=== PATIENT | female | born 1985 | race Caucasian/White ===

== ENCOUNTER 2016-09-17 18:45 | Emergency (ER) | payer MEDICAID ==
[~2016-09-17] VITALS: Ht 162.6 cm; Wt 60.7 kg
[~2016-09-17 18:45] MED LIST: HYDR-3498 PO; IBUP-1542 PO; PREN-39 PO; PRO20 PO
[2016-09-17 18:51] VITALS: Ht 162.6 cm; Wt 60.7 kg
--- NOTE | 2016-09-17 20:27 | ERD ---
ER Documentation Chief Complaint Date/Time DATE: 09/17/16 TIME: 20:26 Chief Complaint lower abd pain radaiting to back x 3 days HPI This a 31-year-old female who presents to the emergency department today complaining of lower abdominal pain and back pain. Patient states that she noticed some blood in her urine when she wiped. States she has taken Tylenol for the pain. She recently had a Pap smear. Denies any nausea vomiting, fevers or chills per ROS All systems reviewed and are negative except as per history of present illness. Medications Home Meds Active Scripts Acetaminophen* (Tylophen*) 500 Mg Capsule, 1 CAP PO Q6H Y for PAIN AND OR ELEVATED TEMP, #30 CAP Prov:BELKIS CRAWLEY-Mónica 09/17/16 Naproxen* (Naprosyn*) 500 Mg Tablet, 500 MG PO BID Y for PAIN AND/OR INFLAMMATION, #30 TAB Prov:BELKIS CRAWLEYC 09/17/16 Tramadol HCl (Tramadol HCl) 50 Mg Tablet, 50 MG PO Q4 Y for PAIN, #20 TAB Prov:BELKIS CRAWLEY-C 09/17/16 Ibuprofen* (Ibuprofen*) 600 Mg Tablet, 600 MG PO Q6 for 7 Days, TAB Prov:AMALIA LORENZO 09/19/15 Hydrocodone Bit-Acetaminophen* ([place]*) 5-325 Mg Tab, 1 TAB PO Q6 Y for PAIN, # 20 TAB Prov:AMALIA LORENZO 09/19/15 Reported Medications Nifedipine* (Procardia*) 20 Mg Cap, 20 MG PO Q6 12/03/12 Vits W-Ca,Fe,Fa(<1MG) ( Vitamins) 1 Tab Tablet, 1 TAB PO 12/03/12 Allergies Allergies: Coded Allergies: No Known Drug Allergy (Verified Allergy, Unknown, 09/19/15) PMhx/Soc History of Surgery: Yes (HYSTERRECTOMY) Hx Miscellaneous Medical Probl: Yes (BACK PAINS) Hx Alcohol Use: No Hx Substance Use: No Hx Tobacco Use: No Physical Exam Vitals Vital Signs Date Time Temp Pulse Resp B/P Pulse Ox O2 Delivery O2 Flow Rate FiO2 09/17/16 18:51 97.3 104 20 136/77 98 Physical Exam Const: No acute distress Head: Atraumatic Eyes: Normal Conjunctiva ENT: Normal External Ears, Nose and Mouth. Neck: Full range of motion..~ No meningismus. Resp: Clear to auscultation bilaterally Cardio: Regular rate and rhythm, no murmurs Abd: Soft, suprapubic tenderness non distended. Normal bowel sounds. No right lower quadrant pain. No tenderness at McBurney's. No left lower quadrant pain. Skin: No petechiae or rashes Back: No midline tenderness. Bilateral paraspinal tenderness. No CVA tenderness. Ext: No cyanosis, or edema Neur: Awake and alert Psych: Normal Mood and Affect Result Diagram: 09/17/162139 Results 24 hrs Laboratory Tests Test 09/17/16 20:35 09/17/16 21:40 Urine Bacteria RARE Urine Bilirubin NEGATIVE Urine Clarity CLEAR Urine Color LT. YELLOW Urine Glucose NEGATIVE% Urine Hemoglobin TRACE Urine Ketones NEGATIVE Urine Leukocyte Esterase NEGATIVE Urine Microscopic RBC 0-2/HPF Urine Microscopic WBC 0-2/HPF Urine Nitrite NEGATIVE Urine Specific [place] 1.015 Urine Squamous Epithelial Cells FEW Urine Total Protein NEGATIVE Urine Urobilinogen 0.2 E.U./dL Urine pH 7.5 Basophils # 0.010^3/ul Basophils % 0.3% Eosinophils # 0.110^3/ul Eosinophils % 1.2% Hematocrit 39.0% Hemoglobin 13.1g/dl Lymphocytes # 3.710^3/ul Lymphocytes % 49.3% Mean Corpuscular Hemoglobin 29.1pg Mean Corpuscular Hemoglobin Concent 33.6g/dl Mean Corpuscular Volume 86.7fl Mean Platelet Volume 9.4fl Monocytes # 0.510^3/ul Monocytes % 6.8% Neutrophils # 3.210^3/ul Neutrophils % 42.3% Nucleated Red Blood Cells # 0.010^3/ul Nucleated Red Blood Cells % 0.0/100WBC Platelet Count 18211^3/UL Red Blood Count 4.5010^6/ul Red Cell Distribution Width 13.2% White Blood Count 7.510^3/ul Current Medications Medications (Trade) Dose Ordered Sig/Wagner Route PRN Reason Start Time Stop Time Status Last Admin Dose Admin Acetaminophen/ Hydrocodone Bitart ([place] (5/325)) 1 tab ONCE ONCE PO 09/17/16 20:30 09/17/16 20:31 DC 09/17/16 20:45 Acetaminophen/ Hydrocodone Bitart ([place] (8/618)) 1 tab ONCE ONCE PO 09/17/16 20:30 09/17/16 20:31 DC DIAGNOSTIC IMAGING REPORT Patient: GIBRAN CEBALLOS : 1985 Age: 31 Sex: F MR #: [id number] DOS: 09/17/16 0000 Ordering MD: BELKIS CRAWLEY PA-C Location: [facility] Room/Bed: PROCEDURE: US Pelvis. CLINICAL INDICATION: Pelvic pain TECHNIQUE: Multiple sonographic images of the pelvis were obtained utilizing a transabdominal technique. The images were reviewed on a PACS workstation. COMPARISON: None available FINDINGS: Uterus: Normal in size, contour and echogenicity with no evidence for myometrial masses. Size is estimated at 7.2 x 5.1 x 3.7 cm. Cervix: No abnormalities of significance are seen. Endometrium: Normal in thickness for the patient's age; 8.1 mm. Right ovary / adnexa: Normal in size estimated at 3 x 2.5 x 2.1 cm. No evidence for masses, normal blood flow on Doppler interrogation. Incidental follicles of the right ovary are present. Left ovary/adnexa: The ovary is not visualized. There is no evidence of adnexal mass. Cul-de-sac: No evidence of free fluid. RPTAT:HJJR IMPRESSION: Nonvisualization of the left ovary, otherwise unremarkable transabdominal pelvic ultrasound. Physician Geraldo Date Time Electronically viewed and signed by Physician Geraldo on 09/17/2016 22:06 JR/ CC: BELKIS CRAWLEY PA-C Procedures/MDM This is a 31-year-old female who presents the emergency department today complaining of lower abdominal pain and back pain for the past 3 days. Patient did indicate that she had some blood in her urine and she has some suprapubic tenderness on physical exam and therefore did obtain a UA and urine test as well as a CBC and pelvic ultrasound UA is negative for infection Urine test is negative CBC shows no elevated white blood cell count. She is not anemic. Platelets are within normal limits. Pelvic ultrasound shows nonvisualization of the left ovary otherwise unremarkable. There is no evidence of adnexal mass. No evidence of free fluid. The right ovary shows normal blood flow. Patient is walking around the emergency room. Her pain was primarily in the suprapubic region and was not localized to either side of her pelvis. Of low suspicion for ectopic , tubo-ovarian abscess or ovarian torsion. She is afebrile and otherwise well- appearing. Patient had no right lower quadrant tenderness no tenderness at McBurney's pillar do not feel that she requires a CT scan. Low suspicion for acute surgical abdomen. Patient has pelvic pain of uncertain etiology. Patient was given [place] here in the emergency department. And pain improved significantly. Patient was given a prescription for tramadol, Naprosyn and Tylenol. At this time the patient is stable for discharge and outpatient management. Patient should follow up with their PCP in the next 1-2 days. They may return to the emergency department sooner for any persistent or worsening of symptoms. Patient understood and agreed with the plan. BELKIS CRAWLEY PA-C Sep 17, 2016 20:27
[2016-09-17] MEDS ORDERED: HYDROCODONE/APAP (5/325) TAB PO ONE ×2 (20:30)
[2016-09-17 21:17] LABS: ADD UMIC YES; URINE BILIRUBIN (Dip) NEGATIVE (NEGATIVE); URINE BLOOD (Dip) TRACE (NEGATIVE); URINE COLOR LT. YELLOW (YELLOW); URINE GLUCOSE (Dip) NEGATIVE (NEGATIVE); URINE KETONES (Dip) NEGATIVE (NEGATIVE); URINE LEUKOCYTE ESTERASE (Dip) NEGATIVE (NEGATIVE); URINE NITRITE (Dip) NEGATIVE (NEGATIVE); URINE TOTAL PROTEIN (Dip) NEGATIVE (NEGATIVE); URINE UROBILINOGEN (Dip) 0.2 E.U./dL (0.1-1.0)
[2016-09-17 21:28] LABS: URINE RBCS 0-2 /HPF (0)
[2016-09-17 21:29] LABS: BACTERIA,URINE RARE; SQUAMOUS EPITHELIAL CELL,UR FEW
[2016-09-17 21:52] LABS: ADD SCAN DIFF NO
[2016-09-17 21:55] LABS: BASOPHILS % 0.3 % (0.0-2.0); EOSINOPHILS # 0.1 10^3/ul (0.0-0.5); EOSINOPHILS % 1.2 % (0.0-7.0); HEMOGLOBIN 13.1 g/dl (12.0-16.0); LYMPHOCYTES # 3.7 10^3/ul (0.8-2.9); LYMPHOCYTES % 49.3 % (15.0-51.0); MEAN CORPUSCULAR HEMOGLOBIN 29.1 pg (29.0-33.0); MEAN CORPUSCULAR HGB CONC 33.6 g/dl (32.0-37.0); MEAN CORPUSCULAR VOLUME 86.7 fl (82.0-101.0); MEAN PLATELET VOLUME 9.4 fl (7.4-10.4); MONOCYTE # 0.5 10^3/ul (0.3-0.9); MONOCYTES % 6.8 % (0.0-11.0); NEUTROPHIL # 3.2 10^3/ul (1.6-7.5); NEUTROPHILS % 42.3 % (39.0-77.0); PLATELET COUNT 343 10^3/UL (140-415); RED CELL DISTRIBUTION WIDTH 13.2 % (11.5-14.5); WHITE BLOOD COUNT 7.5 10^3/ul (4.8-10.8)
--- NOTE | 2016-09-17 22:06 | RADRPT ---
PROCEDURE: US Pelvis. CLINICAL INDICATION: Pelvic pain TECHNIQUE: Multiple sonographic images of the pelvis were obtained utilizing a transabdominal tech nique. The images were reviewed on a PACS workstation. COMPARISON: None available FINDINGS: Uterus: Normal in size, contour and echogenicity with no evidence for myometrial masses. Size is est imated at 7.2 x 5.1 x 3.7 cm. Cervix: No abnormalities of significance are seen. Endometrium: Normal in thickness for the patient's age; 8.1 mm. Right ovary / adnexa: Normal in size estimated at 3 x 2.5 x 2.1 cm. No evidence for masses, normal blood flow on Doppler interrogation. Incidental follicles of the right ovary are present. Left ovary/adnexa: The ovary is not visualized. There is no evidence of adnexal mass. Cul-de-sac: No evidence of free fluid. RPTAT:HJJR IMPRESSION: Nonvisualization of the left ovary, otherwise unremarkable transabdominal pelvic ultrasound. Physician Geraldo Date Time Electronically viewed and signed by Physician Geraldo on 09/17/2016 22:06 JR/
[2016-09-17] MEDS ORDERED: ACET500C5 PO (22:39)
[2016-09-17] MEDS ORDERED: TRAM50TA2 PO (22:39)
[2016-09-17] MEDS ORDERED: NAPR-260 PO (22:39)
[2016-09-17 22:50] VITALS: BP 131/79; PULSE 77; RESP 20; TEMP 98.4
== END 2016-09-17 22:50 | disposition home or self-care (01) ==
LOC: FTE 18:45
DX: R10.30 Lower abdominal pain, unspecified (principal); R10.2 Pelvic and perineal pain; I10 Essential (primary) hypertension
CPT/HCPCS: 76856; 81001; 81003; 85025; Z7502; Z7610

== ENCOUNTER 2017-03-11 13:06 | Emergency (ER) | payer MEDICAID ==
[~2017-03-11] VITALS: Ht 162.6 cm; Wt 64.5 kg
[~2017-03-11 13:06] MED LIST changes: +ACET500C5 PO; +NAPR-260 PO; +TRAM50TA2 PO
[2017-03-11 13:13] VITALS: Ht 162.6 cm; Wt 64.5 kg
--- NOTE | 2017-03-11 13:29 | ERA ---
ER Documentation Chief Complaint Date/Time DATE: 03/11/17 TIME: 13:28 Chief Complaint epigastric pain , vomiting , itching and geeralized rash HPI 31-year-old female presenting with a chief complaint of rash 3 days. Also complaining of epigastric pain and mild nausea. Patient tolerates p.o. Has taken Benadryl without relief. Denies fever, chills, headache, meningismus, cough, similar symptoms in the past. No recent travel or change in diet. Vaccination status up-to-date. No sick contacts. ROS All systems reviewed and are negative except as per history of present illness. Medications Home Meds Active Scripts Acetaminophen* (Tylophen*) 500 Mg Capsule, 1 CAP PO Q6H Y for PAIN AND OR ELEVATED TEMP, #30 CAP Prov:BELKIS CRAWLEY PA-C 09/17/16 Naproxen* (Naprosyn*) 500 Mg Tablet, 500 MG PO BID Y for PAIN AND/OR INFLAMMATION, #30 TAB Prov:BELKIS CRAWLEY PA-C 09/17/16 Tramadol HCl (Tramadol HCl) 50 Mg Tablet, 50 MG PO Q4 Y for PAIN, #20 TAB Prov:BELKIS CRAWLEY PA-C 09/17/16 Ibuprofen* (Ibuprofen*) 600 Mg Tablet, 600 MG PO Q6 for 7 Days, TAB Prov:AMALIA LORENZO 09/19/15 Hydrocodone Bit-Acetaminophen* ([place]*) 5-325 Mg Tab, 1 TAB PO Q6 Y for PAIN, # 20 TAB Prov:AMALIA LORENZO 09/19/15 Reported Medications Nifedipine* (Procardia*) 20 Mg Cap, 20 MG PO Q6 12/03/12 Vits W-Ca,Fe,Fa(<1MG) ( Vitamins) 1 Tab Tablet, 1 TAB PO 12/03/12 Allergies Allergies: Coded Allergies: No Known Drug Allergy (Verified Allergy, Unknown, 09/19/15) PMhx/Soc History of Surgery: No Anesthesia Reaction: No Hx Neurological Disorder: No Hx Respiratory Disorders: No Hx Cardiac Disorders: Yes (HTN) Hx Psychiatric Problems: No Hx Miscellaneous Medical Probl: No Hx Alcohol Use: No Hx Substance Use: No Hx Tobacco Use: No Physical Exam Vitals Vital Signs Date Time Temp Pulse Resp B/P Pulse Ox O2 Delivery O2 Flow Rate FiO2 03/11/17 13:13 99.3 108 18 151/86 99 Physical Exam Const: Healthy-appearing. Well-nourished. Well-developed. No acute distress. Skin: Diffuse, generalized maculopapular rash on the upper torso and upper extremities. No petechiae or rashes. No ulcer, induration, jaundice. Good turgor. Ext: No cyanosis or edema noted. Head: Normocephalic. As noted in skin exam. Eyes: Non-injected; No scleral erythema, or discharge. EOMI and GUERO bilaterally. Ears: Normal External Ears, EACs clear, TM normal bilaterally without erythema. Nose: Normal nose without discharge, septal deviation, or sinus tenderness. Oral: No oral edema visualized. Mucous membranes moist and pink. Neck: No cervical lymphadenopathy, or masses. Trachea midline. Supple ~ No meningismus. Pulm: Good air movement in upper and lower respiratory tracts. No dyspnea, stridor, tripoding or drooling. Clear to auscultation bilaterally. Cardio: Regular rate and rhythm. No JVD grossly observed. Radial and posterior tibial pulses 2+ bilaterally. No cyanosis. Capillary refill less than 2 seconds. Abd: Soft, non tender, non distended. No guarding. Normal bowel sounds. MS: Normal motor strength, normal tone with gross examination. Back: No midline or flank tenderness. Neur: Neurovascularly intact bilaterally. Awake, alert and oriented x3. Result Diagram: 03/11/17 1338 03/11/17 1338 Results 24 hrs Laboratory Tests Test 03/11/17 13:38 White Blood Count 7.510^3/ul Red Blood Count 4.4910^6/ul Hemoglobin 12.4g/dl Hematocrit 37.3% Mean Corpuscular Volume 83.1fl Mean Corpuscular Hemoglobin 27.6pg Mean Corpuscular Hemoglobin Concent 33.2g/dl Red Cell Distribution Width 13.7% Platelet Count 61480^3/UL Mean Platelet Volume 9.4fl Neutrophils % 61.2% Lymphocytes % 31.5% Monocytes % 5.7% Eosinophils % 1.2% Basophils % 0.3% Nucleated Red Blood Cells % 0.0/100WBC Neutrophils # (Manual) 4.610^3/ul Lymphocytes # 2.410^3/ul Monocytes # 0.410^3/ul Eosinophils # 0.110^3/ul Basophils # 0.010^3/ul Nucleated Red Blood Cells # 0.010^3/ul Prothrombin Time 12.1Sec Prothrombin Time Ratio 0.9 INR International Normalized Ratio 0.90 Activated Partial Thromboplast Time 30.3Sec Sodium Level 142mmol/L Potassium Level 4.1mmol/L Chloride Level 101mmol/L Carbon Dioxide Level 26mmol/L Anion Gap 19 Blood Urea Nitrogen 14mg/dl Creatinine 0.76mg/dl Glucose Level 106mg/dl Calcium Level 9.2mg/dl Total Bilirubin 0.4mg/dl Direct Bilirubin 0.00mg/dl Indirect Bilirubin 0.4mg/dl Aspartate Amino Transf (AST/SGOT) 25IU/L Alanine Aminotransferase (ALT/SGPT) 33IU/L Alkaline Phosphatase 107IU/L Total Protein 7.6g/dl Albumin 4.4g/dl Globulin 3.20g/dl Albumin/Globulin Ratio 1.37 Lipase 86U/L Current Medications Medications (Trade) Dose Ordered Sig/Wagner Route PRN Reason Start Time Stop Time Status Last Admin Dose Admin Diphenhydramine HCl (Benadryl) 50 mg ONCE ONCE PO 03/11/17 13:30 03/11/17 13:31 DC 03/11/17 13:33 Procedures/MDM 31-year-old female presenting with a chief complaint of rash and epigastric pain 3 days. CBC, CMP, lipase, urinalysis and urine were obtained. was unremarkable. All other tests were within normal limits. At this time of little suspicion for cholangitis, primary sclerosing cholangitis , primary biliary cirrhosis, cholecystitis, pancreatitis, GEN, SJS, or other acute pathologies. Most likely diagnosis is skin rash of unknown etiology. Patient will be discharged with hydrocortisone cream, Zyrtec, and Benadryl. I have spoke with the patient regarding their condition and future management. They have verbally responded that they understand their status and treatment plan. The patients vitals are stable, and their current condition is appropriate for discharge. The patient will be given discharge instructions with return precautions. Departure Diagnosis: Primary Impression: Rash and nonspecific skin eruption Condition: Stable Additional Instructions: Follow up with your PCP within the next 1-3 days for a more thorough evaluation and a possible referral to a specialist. Return the the emergency department immediately if symptoms worsen or change. If you have any questions regarding medications, ask your pharmacist or us before you leave. If any adverse reactions occur while taking your medications, discontinue the treatment and return to the emergency department immediately. Take your medications as directed, and complete the entire course of treatment. DMITRY WILSON PA-C Mar 11, 2017 13:24
[2017-03-11] MEDS ORDERED: DIPHENHYDRAMINE 50 MG CAP PO ONE (13:30)
[2017-03-11 13:50] LABS: BASOPHILS % 0.3 % (0.0-2.0); EOSINOPHILS # 0.1 10^3/ul (0.0-0.5); EOSINOPHILS % 1.2 % (0.0-7.0); HEMATOCRIT 37.3 % (37.0-47.0); HEMOGLOBIN 12.4 g/dl (12.0-16.0); LYMPHOCYTES # 2.4 10^3/ul (0.8-2.9); LYMPHOCYTES % 31.5 % (15.0-51.0); MEAN CORPUSCULAR HEMOGLOBIN 27.6 pg (29.0-33.0); MEAN CORPUSCULAR HGB CONC 33.2 g/dl (32.0-37.0); MEAN CORPUSCULAR VOLUME 83.1 fl (82.0-101.0); MEAN PLATELET VOLUME 9.4 fl (7.4-10.4); MONOCYTE # 0.4 10^3/ul (0.3-0.9); MONOCYTES % 5.7 % (0.0-11.0); NEUTROPHILS % 61.2 % (39.0-77.0); PLATELET COUNT 319 10^3/UL (140-415); RED BLOOD COUNT 4.49 10^6/ul (4.20-5.40); RED CELL DISTRIBUTION WIDTH 13.7 % (11.5-14.5); WHITE BLOOD COUNT 7.5 10^3/ul (4.8-10.8)
[2017-03-11 14:08] LABS: ALBUMIN 4.4 g/dl (3.3-4.9); ALBUMIN/GLOBULIN RATIO 1.37; BILIRUBIN,INDIRECT 0.4 mg/dl (0-1.1); BILIRUBIN,TOTAL 0.4 mg/dl (0.2-1.3); CALCIUM 9.2 mg/dl (8.4-10.2); CREATININE 0.76 mg/dl (0.44-1.00); INR 0.9; POTASSIUM 4.1 mmol/L (3.5-5.1); PROTIME 12.1 Sec (12.2-14.2); PT RATIO 0.9; TOTAL PROTEIN 7.6 g/dl (6.1-8.1)
[2017-03-11 14:09] LABS: PARTIAL THROMBOPLASTIN TIME 30.3 Sec (25.0-35.0)
[2017-03-11] MEDS ORDERED: CETI10CA PO (14:16)
[2017-03-11] MEDS ORDERED: BEN50 PO (14:16)
[2017-03-11] MEDS ORDERED: HC.5O30 TOP (14:16)
[2017-03-11 14:22] LABS: ADD UMIC NO; UR ASCORBIC ACID NEGATIVE (NEGATIVE); UR BILIRUBIN (Dip) NEGATIVE (NEGATIVE); UR BLOOD (Dip) NEGATIVE (NEGATIVE); UR CLARITY SLIGHTLY CLOUDY (CLEAR); UR COLOR YELLOW (YELLOW); UR GLUCOSE (Dip) NEGATIVE (NEGATIVE); UR KETONES (Dip) NEGATIVE (NEGATIVE); UR LEUKOCYTE ESTERASE (Dip) NEGATIVE Leu/ul (NEGATIVE); UR NITRITE (Dip) NEGATIVE (NEGATIVE); UR RBC 0 /HPF (0-5); UR SPECIFIC GRAVITY (Dip) 1.018 (1.003-1.030); UR TOTAL PROTEIN (Dip) NEGATIVE (NEGATIVE); UR UROBILINOGEN (Dip) NEGATIVE (NEGATIVE)
== END 2017-03-11 14:31 | disposition home or self-care (01) ==
LOC: FTE 13:06
DX: R21 Rash and other nonspecific skin eruption (principal); I10 Essential (primary) hypertension
CPT/HCPCS: 80053; 81001; 83690; 85025; 85610; 85730; Z7502; Z7610; 81003; 99283

== ENCOUNTER 2017-05-13 19:35 | Emergency (ER) | payer MEDICAID ==
[~2017-05-13] VITALS: Ht 167.6 cm; Wt 64.0 kg
[~2017-05-13 19:35] MED LIST changes: +BEN50 PO; +CETI10CA PO; +HC.5O30 TOP
[2017-05-13 19:39] VITALS: Ht 167.6 cm; Wt 64.0 kg
[2017-05-13] MEDS ORDERED: ONDANSETRON 4 MG INJ IV STA (21:34)
[2017-05-13] MEDS ORDERED: SOD CHLORIDE 0.9% 1,000 ML IV STA (21:34)
[2017-05-13] MEDS ORDERED: KETOROLAC 30 MG INJ IV STA (21:34)
[2017-05-13] MEDS ORDERED: IBUP-1542 PO (23:42)
[2017-05-13] MEDS ORDERED: CEPH-443 PO (23:42)
--- NOTE | 2017-05-13 23:46 | ERD ---
ER Documentation Chief Complaint Chief Complaint back pain x 1 month, denies injury (HAILEY LORENZO) HPI This is a 32-year-old female presents to the ER with right-sided flank pain that radiates into her abdomen. Patient states that pain is severe and constant she has been trying to take [id number] medications however it does not work. Patient has nausea however denies vomiting or diarrhea. She denies any urinary frequency or dysuria. He has not had any fevers or chills. She denies any trauma. (HAILEY LORENZO) ROS 12 point review of systems was done, all negative except per HPI. (HAILEY LORENZO) Medications Home Meds Active Scripts Docusate Sodium* (Colace*) 100 Mg Capsule, 100 MG PO TID, #30 CAP Prov:BELKIS CRAWLEY PA-C 05/14/17 Polyethylene Glycol* (Miralax*) 17 Gm Powd.pack, 17 GM PO DAILY, #15 Prov:BELKIS CRAWLEY PA-C 05/14/17 Ibuprofen* (Motrin*) 600 Mg Tab, 600 MG PO Q6, #30 TAB Prov:HAILEY LORNEZO 05/13/17 Cephalexin* (Keflex*) 500 Mg Capsule, 500 MG PO BID for 7 Days, CAP Prov:HAILEY LORENZO 05/13/17 Diphenhydramine Hcl* (Benadryl*) 50 Mg Cap, 50 MG PO QHS, #30 CAP Prov:DMITRY WILSON PA-C 03/11/17 Cetirizine Hcl* (Zyrtec*) 10 Mg Capsule, 10 MG PO QAM, #10 TAB.CHEW Prov:DMITRY WILSON PA-C 03/11/17 Hydrocortisone* Topical (Hydrocortisone* Topical) 0.5%- 28.35 Gm Oint, 1 APPLIC TOP BID for 14 Days, TUB Prov:DMITRY WILSON PA-C 03/11/17 Acetaminophen* (Tylophen*) 500 Mg Capsule, 1 CAP PO Q6H Y for PAIN AND OR ELEVATED TEMP, #30 CAP Prov:BELKIS CRAWLEY PA-C 09/17/16 Naproxen* (Naprosyn*) 500 Mg Tablet, 500 MG PO BID Y for PAIN AND/OR INFLAMMATION, #30 TAB Prov:BELKIS CRAWLEY PA-C 09/17/16 Tramadol HCl (Tramadol HCl) 50 Mg Tablet, 50 MG PO Q4 Y for PAIN, #20 TAB Prov:BELKIS CRAWLEY PA-C 09/17/16 Ibuprofen* (Ibuprofen*) 600 Mg Tablet, 600 MG PO Q6 for 7 Days, TAB Prov:HAILEY LORENZO 09/19/15 Hydrocodone Bit-Acetaminophen* ([place]*) 5-325 Mg Tab, 1 TAB PO Q6 Y for PAIN, # 20 TAB Prov:HAILEY LORENZO 09/19/15 Reported Medications Nifedipine* (Procardia*) 20 Mg Cap, 20 MG PO Q6 12/03/12 Vits W-Ca,Fe,Fa(<1MG) ( Vitamins) 1 Tab Tablet, 1 TAB PO 12/03/12 Allergies Allergies: Coded Allergies: No Known Drug Allergy (Verified Allergy, Unknown, 09/19/15) PMhx/Soc History of Surgery: No Anesthesia Reaction: No Hx Neurological Disorder: No Hx Respiratory Disorders: No Hx Cardiac Disorders: Yes (HTN) Hx Psychiatric Problems: No Hx Miscellaneous Medical Probl: No Hx Alcohol Use: No Hx Substance Use: No Hx Tobacco Use: No Smoking Status: Never smoker (HAILEY LORENZO) Physical Exam Vitals Vital Signs Date Time Temp Pulse Resp B/P Pulse Ox O2 Delivery O2 Flow Rate FiO2 05/13/17 19:39 98.2 97 20 165/80 100 (BELKIS CRAWLEY PA-C) Physical Exam GENERAL: The patient is well developed and appropriate for usual state of health , in no apparent distress. HEENT: Atraumatic. CHEST: Clear to auscultation bilaterally. There are no rales, wheezes or rhonchi. HEART: Regular rate and rhythm. No murmurs, clicks, rubs or gallops. ABDOMEN: Soft, nontender and nondistended. Good bowel sounds. No rebound or guarding. No gross peritonitis. No gross organomegaly or masses. No Mendieta sign or McBurney point tenderness. BACK: No midline or flank tenderness. NEURO: Alert and oriented. (HAILEY LORENZO) Result Diagram: 05/13/17214505/13/172145 Results 24 hrs Laboratory Tests Test 05/13/17 21:40 05/13/17 21:46 Urine Color YELLOW Urine Clarity SLIGHTLY CLOUDY Urine pH 5.0 Urine Specific [place] 1.020 Urine Ketones NEGATIVEmg/dL Urine Nitrite NEGATIVEmg/dL Urine Bilirubin NEGATIVEmg/dL Urine Urobilinogen NEGATIVEmg/dL Urine Leukocyte Esterase 2+Terri/ul Urine Microscopic RBC 4/HPF Urine Microscopic WBC 5/HPF Urine Squamous Epithelial Cells FEW/HPF Urine Hemoglobin NEGATIVEmg/dL Urine Glucose NEGATIVEmg/dL Urine Total Protein NEGATIVEmg/dl White Blood Count 7.910^3/ul Red Blood Count 4.5610^6/ul Hemoglobin 12.9g/dl Hematocrit 39.5% Mean Corpuscular Volume 86.6fl Mean Corpuscular Hemoglobin 28.3pg Mean Corpuscular Hemoglobin Concent 32.7g/dl Red Cell Distribution Width 14.9% Platelet Count 73094^3/UL Mean Platelet Volume 9.4fl Neutrophils % 57.1% Lymphocytes % 34.6% Monocytes % 6.6% Eosinophils % 1.3% Basophils % 0.1% Nucleated Red Blood Cells % 0.0/100WBC Neutrophils # 4.510^3/ul Lymphocytes # 2.710^3/ul Monocytes # 0.510^3/ul Eosinophils # 0.110^3/ul Basophils # 0.010^3/ul Nucleated Red Blood Cells # 0.010^3/ul Sodium Level 142mmol/L Potassium Level 3.9mmol/L Chloride Level 104mmol/L Carbon Dioxide Level 28mmol/L Anion Gap 14 Blood Urea Nitrogen 16mg/dl Creatinine 0.87mg/dl Glucose Level 90mg/dl Calcium Level 9.4mg/dl Total Bilirubin 0.3mg/dl Direct Bilirubin 0.00mg/dl Indirect Bilirubin 0.3mg/dl Aspartate Amino Transf (AST/SGOT) 27IU/L Alanine Aminotransferase (ALT/SGPT) 38IU/L Alkaline Phosphatase 92IU/L Total Protein 7.8g/dl Albumin 4.7g/dl Globulin 3.10g/dl Albumin/Globulin Ratio 1.51 Lipase 76U/L Current Medications Medications (Trade) Dose Ordered Sig/Wagner Route PRN Reason Start Time Stop Time Status Last Admin Dose Admin Sodium Chloride (NS) 1,000 ml @ 1,000 mls/hr Q1H STAT IV 05/13/17 21:34 05/13/17 22:33 DC 05/13/17 22:03 Ondansetron HCl (Zofran Inj) 4 mg ONCE STAT IV 05/13/17 21:34 05/13/17 21:36 DC 05/13/17 22:03 Ketorolac Tromethamine (Toradol) 30 mg ONCE STAT IV 05/13/17 21:34 05/13/17 21:36 DC 05/13/17 22:03 DIAGNOSTIC IMAGING REPORT Patient: GIBRAN CORTES : 1985 Age: 32 Sex: F MR #: [id number] DOS: 05/13/172133 Ordering MD: HAILEY LORENZO PA-C Location: [facility] Room/Bed: PROCEDURE: CT ABDOMEN/PELVIS WITHOUT CONTRAST CLINICAL INDICATION: 32-year-old female with abdominal pain. TECHNIQUE: The study was performed utilizing a [employer] VCT 64-slice CT scanner. Direct axial sections were obtained through the abdomen and pelvis without the use of intravenous contrast material. Sagittal and coronal reformations were obtained. One or more of the following dose reduction techniques were utilized: automated exposure control, adjustment of the mA and/ or kV according to patient's size and/or the use of iterative reconstruction technique. The images were reviewed on a PACS workstation. CTD/vol = 9.4 mGy ; Total Exam DLP = 530.9 mGy-cm. COMPARISON: Ultrasound pelvis September 17, 2016. FINDINGS: There is trace bibasilar subsegmental atelectasis. There is no evidence for significant pleural effusion. The liver has a normal size and contour without focal areas of abnormal density. No intrahepatic nor extrahepatic biliary ductal dilatation is seen. The gallbladder is contracted without evidence for calcified stones, significant wall thickening or pericholecystic fluid. The pancreas is without areas of abnormal attenuation. The spleen is identified and has a normal size without abnormal density. The adrenal glands are unremarkable. The kidneys are without abnormal density. No hydroureteronephrosis nor nephroureterolithiasis is evident. The urinary bladder contains urine. There is mild retained stool identified within the ascending and transverse colon without evidence for bowel obstruction. The appendix is visualized and is without abnormal thickening or surrounding inflammatory reaction. The uterus is anteflexed. There is no significant free fluid. The aortoiliac vessels are without aneurysmal dilatation. The osseous structures are intact. IMPRESSION: 1. No CT evidence for obstructive uropathy or renal calculi. 2. Retained stool within the proximal colon without obstruction. 3. No CT evidence for appendicitis. .Kendell Escamilla MD, MD Date Time Electronically viewed and signed by .Kendell Escamilla MD, MD on 05/14/2017 00:46 .M/ CC: HAILEY LORENZO (BELKIS CRAWLEY PA-C) Procedures/MDM Diagnosis includes but is not limited to; muscular back pain, nephrolithiasis, obstructive stone, septic stone, acute abdomen, UTI, pyelonephritis. She was found to have a urinary tract infection on urinalysis, she will be treated with Keflex. Suspicion for pyelonephritis is low she is afebrile and well- appearing. Awaiting CT results. (HAILEY LORENZO) Patient was signed out to me by Hailey Lorenzo PA-C pending results of the CT scan. CT abdomen pelvis noncontrast shows no CT evidence for obstructive uropathy or renal calculi. There is mild retained stool identified within the ascending and transverse colon without evidence for bowel obstruction. The appendix is visualized without abnormal thickening or surrounding inflammatory reaction. There is no significant free fluid. Patient will be discharged home with a prescription for Keflex and Motrin as prescribed by provider Adeline. Also give the patient a prescription for MiraLAX and Colace for her retained stool. This time there is no evidence to suggest acute surgical abdomen. Patient did indicate that she takes iron pills for her anemia and this is likely causing some of her constipation. I have explained this to her. At this time the patient is stable for discharge and outpatient management. Patient should follow up with their PCP in the next 1-2 days. They may return to the emergency department sooner for any persistent or worsening of symptoms. Patient understood and agreed with the plan. (BELKIS CRAWLEY PA-C) Departure Diagnosis: Primary Impression: UTI (urinary tract infection) Additional Impression: Flank pain Condition: Stable Patient Instructions: Understanding Urinary Tract Infections (UTIs), Flank Pain , Uncertain Cause Additional Instructions: Llame al doctor MAANA y sherron gerald LILLIE PARA DENTRO DE 1-2 ARANDA.Dgale a la secretaria que nosotros le instruimos hacer esta lillie.Avise o llame si baron condicin se empeora antes de la lillie. Regresa aqui si peor o no mejor. HAILEY LORENZO May 13, 2017 23:46 BELKIS CRAWLEY PA-C May 14, 2017 00:52
--- NOTE | 2017-05-14 00:47 | RADRPT ---
PROCEDURE: CT ABDOMEN/PELVIS WITHOUT CONTRAST CLINICAL INDICATION: 32-year-old female with abdominal pain. TECHNIQUE: The study was performed utilizing a [employer] VCT 64-slice CT scanner. Direct axia l sections were obtained through the abdomen and pelvis without the use of intravenous contrast mate rial. Sagittal and coronal reformations were obtained. One or more of the following dose reduction t echniques were utilized: automated exposure control, adjustment of the mA and/or kV according to pat ient's size and/or the use of iterative reconstruction technique. The images were reviewed on a PAC S workstation. CTD/vol = 9.4 mGy; Total Exam DLP = 530.9 mGy-cm. COMPARISON: Ultrasound pelvis September 17, 2016. FINDINGS: There is trace bibasilar subsegmental atelectasis. There is no evidence for significant pleural eff usion. The liver has a normal size and contour without focal areas of abnormal density. No intrahep atic nor extrahepatic biliary ductal dilatation is seen. The gallbladder is contracted without evide nce for calcified stones, significant wall thickening or pericholecystic fluid. The pancreas is with out areas of abnormal attenuation. The spleen is identified and has a normal size without abnormal density. The adrenal glands are unremarkable. The kidneys are without abnormal density. No hydrouret eronephrosis nor nephroureterolithiasis is evident. The urinary bladder contains urine. There is mil d retained stool identified within the ascending and transverse colon without evidence for bowel obs truction. The appendix is visualized and is without abnormal thickening or surrounding inflammatory reaction. The uterus is anteflexed. There is no significant free fluid. The aortoiliac vessels are without aneurysmal dilatation. The osseous structures are intact. IMPRESSION: 1. No CT evidence for obstructive uropathy or renal calculi. 2. Retained stool within the proximal colon without obstruction. 3. No CT evidence for appendicitis. .Kendell Escamilla MD, Date Time Electronically viewed and signed by .Kendell Escamilla MD, MD on 05/14/2017 00:46 .M/
[2017-05-14] MEDS ORDERED: POLY17PO6 PO (01:03)
[2017-05-14] MEDS ORDERED: DOCU-144 PO (01:03)
[2017-05-14 01:14] VITALS: BP 123/80; PULSE 71; RESP 18
== END 2017-05-14 01:15 | disposition home or self-care (01) ==
LOC: FTE 19:35
DX: N39.0 Urinary tract infection, site not specified (principal); I10 Essential (primary) hypertension
CPT/HCPCS: 74176; 80053; 81001; 83690; 85025; 96374; 96375; J1885; J2405; J7030; Z7502

== ENCOUNTER 2017-08-04 23:03 | Emergency (ER) | END 2017-08-05 04:00 | disposition home or self-care (01) ==

== ENCOUNTER 2018-09-19 18:54 | Emergency (ER) | payer MEDICAID ==
[~2018-09-19] VITALS: Ht 205.7 cm; Wt 61.4 kg
[~2018-09-19 18:54] MED LIST changes: +CEPH-443 PO; +DOCU-144 PO; +HYDR-4011 PO; -NAPR-260 PO; +NAPR-985 PO; +PENI500T PO; +POLY17PO6 PO
[2018-09-19 18:59] VITALS: Ht 205.7 cm; Wt 61.4 kg
[2018-09-19] MEDS ORDERED: KETOROLAC 30 MG INJ IM STA (23:07)
[2018-09-19] MEDS ORDERED: HYDROCODONE/APAP (5/325) TAB PO ONE (23:30)
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
[2018-09-20] MEDS ORDERED: HYDR-4011 PO (00:26)
[2018-09-20] MEDS ORDERED: IBUP-1542 PO (00:26)
[2018-09-20 01:25] VITALS: BP 129/82; PULSE 75; RESP 18
== END 2018-09-20 01:26 | disposition home or self-care (01) ==
LOC: FTE 18:54
DX: S19.9XXA Unspecified injury of neck, initial encounter (principal); S39.92XA Unspecified injury of lower back, initial encounter; W23.0XXA Caught, crushed, jammed, or pinched between moving objects, initial encounter; Y92.89 Other specified places as the place of occurrence of the external cause
CPT/HCPCS: 72125; 72128; 81025; 96372; J1885; Z7502; Z7610